=== PATIENT | female | born 1990 | race Caucasian/White ===

== ENCOUNTER 2022-05-11 17:14 | Inpatient (IN) | payer MEDICAID, SELFPAY ==
[2022-05-11] MEDS ORDERED: Acetaminophen 500 MG TAB ONE ×2 (17:37→22:19)
[2022-05-11 18:07] LABS: Hemoglobin 12.9 g/dL (12.0-16.0); Mean Corpuscular HGB CONC 34.1 g/dL (32.0-36.0); Mean Corpuscular Hemoglobin 31.1 pg (27.0-31.0); Mean Corpuscular Volume 91.3 fL (78.0-98.0); Mean Platelet Volume 8.5 fL (7.4-10.4); Platelet Count 115 thou/uL (130-400); RBC Distribution Width 12.6 % (11.5-14.5); Red Blood Cell (RBC) Count 4.15 mill/uL (4.20-5.40); White Blood Cell (WBC) Count 0.9 thou/uL (4.8-10.8)
[2022-05-11 18:17] LABS: Band 2 % (5-11); Eosinophils 1 % (0-10); Lymphocytes 80 % (21-51); MDiff Complete? YES; Monocytes 10 % (0-10); Neutrophil 4 % (42-75); Platelet Morphology Comment Appears Decreased; RBC Morphology Normal; Reactive Lymphocytes 3 % (0-10); Reflex for Review?? YES
[2022-05-11 18:21] LABS: ALT (SGPT) 25 U/L (8-55); AST (SGOT) 18 U/L (5-34); Albumin 4.3 g/dL (3.5-5.0); Alkaline Phosphatase 86 U/L (40-110); Anion Gap 13 mmol/L (10-20); BUN (Urea Nitrogen) 6 mg/dL (7.0-18.7); Bilirubin, Total 0.5 mg/dL (0.2-1.2); Calc. Creatinine Clearance 0 mL/min (70-130); Calcium 9.4 mg/dL (7.8-10.44); Carbon Dioxide 22 mmol/L (22-29); Chloride 108 mmol/L (98-107); Estimated GFR 119; Globulin 3.5 g/dL (2.4-3.5); Glucose 106 mg/dL (70-105); Potassium 3.8 mmol/L (3.5-5.1); Protein, Total 7.8 g/dL (6.0-8.3); Sodium 139 mmol/L (136-145)
[2022-05-11] MEDS ORDERED: Piperacillin/Tazobactam 3.375 GM VIAL ONE (18:34)
[2022-05-11] MEDS ORDERED: Vancomycin 1 GM/200 ML BAG ONE (18:59)
[2022-05-11 19:21] LABS: SARS-CoV-2 NAA Rapid Test Not Detected (NotDetected)
[2022-05-11 19:26] LABS: Bilirubin Negative (Negative); Blood, Urine Negative (Negative); Clarity Turbid (Clear); Glucose, Urine (Dipstick) Normal (Negative); Ketone, Urine Trace mg/dL (Negative); Leukocyte Negative Leu/uL (Negative); Nitrite Negative (Negative); Protein, Urine (Dipstick) Negative (Neg-Trace); Specific Gravity, Urine 1.013 (1.002-1.036); Urobilinogen Normal mg/dL (Less than 2); pH, Urine 5.5 (5.0-9.0)
[2022-05-11 22:17] LABS: CSF Source CSF; Clarity Hazy (Clear); Tube # 4
[2022-05-11] MEDS ORDERED: Ketorolac Tromethamine 30 MG/ML VIAL ONE (22:19)
[2022-05-11] MEDS ORDERED: diphenhydrAMINE 50 MG/ML VIAL ONE (22:22)
[2022-05-12] MEDS ORDERED: Cefepime 1 GM in Sodium Chloride 0.9% 100 ML IVPB SCH (02:00)
[2022-05-12 02:04] VITALS: BMI 32.4
[2022-05-12] MEDS: Piperacillin/Tazobactam 3.375 GM in Sodium Chloride 0.9% 100 ML IVPB SCH ×3 (02:55→17:46)
[2022-05-12] MEDS: Sodium Chloride 0.9% 1,000 ML IV SCH ×2 (02:55→21:00)
[2022-05-12] MEDS: Acetaminophen 325 MG TAB PO PRN ×3 (04:06→21:01)
[2022-05-12] MEDS: VANCOMYCIN 1.25 GM/250 ML BAG 1.25 GM in Premix Bag 1 BAG IVPB SCH ×2 (04:45→11:15)
[2022-05-12] MEDS: Ondansetron PF 4 MG/2 ML Vial IVP PRN ×3 (04:52→21:00)
[2022-05-12] MEDS ORDERED: traMADol HCl 50 MG TAB PO SCH (05:00)
[2022-05-12 08:57] LABS: Mean Corpuscular HGB CONC 33.4 g/dL (32.0-36.0); Mean Corpuscular Hemoglobin 31.1 pg (27.0-31.0); Mean Platelet Volume 8.3 fL (7.4-10.4); Platelet Count 122 thou/uL (130-400); RBC Distribution Width 12.7 % (11.5-14.5); Red Blood Cell (RBC) Count 3.53 mill/uL (4.20-5.40); White Blood Cell (WBC) Count 1.4 thou/uL (4.8-10.8)
[2022-05-12 09:00] LABS: MONO NEGATIVE CONTROL ZONE White (Negative) (White); MONO POSITIVE CONTROL Pink Line (Positive) (PINK/RED); Mononucleosis NEGATIVE (NEGATIVE)
[2022-05-12 09:12] LABS: Anion Gap 8 mmol/L (10-20); BUN (Urea Nitrogen) 4 mg/dL (7.0-18.7); Calc. Creatinine Clearance 194 mL/min (70-130); Carbon Dioxide 21 mmol/L (22-29); Chloride 112 mmol/L (98-107); Estimated GFR 125; Glucose 117 mg/dL (70-105); Potassium 3.4 mmol/L (3.5-5.1); Sodium 138 mmol/L (136-145)
[2022-05-12 09:53] LABS: Band 4 % (5-11); Lymphocytes 72 % (21-51); MDiff Complete? YES; Monocytes 20 % (0-10); Neutrophil 4 % (42-75); Platelet Morphology Comment Appears Decreased; Polychromasia SLIGHT = 2-3 cells (100X) (0-2/hpf)
[2022-05-12] MEDS ORDERED: Melatonin 3 MG TAB PO PRN (16:03)
[2022-05-13] MEDS: Piperacillin/Tazobactam 3.375 GM in Sodium Chloride 0.9% 100 ML IVPB SCH ×4 (02:09→17:39)
[2022-05-13 04:44] LABS: Anion Gap 11 mmol/L (10-20); BUN (Urea Nitrogen) 4 mg/dL (7.0-18.7); Calc. Creatinine Clearance 181 mL/min (70-130); Calcium 8.3 mg/dL (7.8-10.44); Carbon Dioxide 21 mmol/L (22-29); Chloride 109 mmol/L (98-107); Estimated GFR 123; Glucose 109 mg/dL (70-105); Potassium 3.4 mmol/L (3.5-5.1); Sodium 138 mmol/L (136-145)
[2022-05-13] MEDS: Sodium Chloride 0.9% 1,000 ML IV SCH ×4 (04:53→23:30)
[2022-05-13 05:01] LABS: Band 6 % (5-11); Hemoglobin 11.3 g/dL (12.0-16.0); Hypochromia SLIGHT = 6-15 cells (100X) (0-5/hpf); Lymphocytes 36 % (21-51); MDiff Complete? YES; Mean Corpuscular HGB CONC 34.4 g/dL (32.0-36.0); Mean Corpuscular Hemoglobin 32.1 pg (27.0-31.0); Mean Corpuscular Volume 93.3 fL (78.0-98.0); Mean Platelet Volume 7.4 fL (7.4-10.4); Monocytes 14 % (0-10); Neutrophil 40 % (42-75); Nucleated RBC 1 % (0); Platelet Count 165 thou/uL (130-400); Platelet Morphology Comment Appears Adequate; RBC Distribution Width 12.8 % (11.5-14.5); Reactive Lymphocytes 4 % (0-10); Red Blood Cell (RBC) Count 3.53 mill/uL (4.20-5.40); White Blood Cell (WBC) Count 2.4 thou/uL (4.8-10.8)
[2022-05-13 05:04] LABS: HIV (1/2) Antibody/Antigen Non-Reactive (NonReactive); HIV 1/2 INDEX 0.17 S/CO (<1.00)
[2022-05-13] MEDS: Acetaminophen 325 MG TAB PO PRN (06:06)
[2022-05-13 09:17] LABS: EBV VCA IgM <36.0 U/mL (0.0-35.9)
[2022-05-13] MEDS ORDERED: Bisacodyl 5 MG TAB PO PRN (18:26)
[2022-05-14] MEDS: Sodium Chloride 0.9% 1,000 ML IV SCH ×2 (02:50→11:46)
[2022-05-14] MEDS: Piperacillin/Tazobactam 3.375 GM in Sodium Chloride 0.9% 100 ML IVPB SCH ×3 (02:52→18:32)
[2022-05-14 04:45] LABS: Anion Gap 15 mmol/L (10-20); BUN (Urea Nitrogen) 6 mg/dL (7.0-18.7); Calc. Creatinine Clearance 179 mL/min (70-130); Calcium 8.2 mg/dL (7.8-10.44); Carbon Dioxide 18 mmol/L (22-29); Chloride 112 mmol/L (98-107); Estimated GFR 123; Glucose 84 mg/dL (70-105); Potassium 3.6 mmol/L (3.5-5.1); Sodium 141 mmol/L (136-145)
[2022-05-14 05:37] LABS: Band 2 % (5-11); Eosinophils 1 % (0-10); Hemoglobin 10.1 g/dL (12.0-16.0); Lymphocytes 48 % (21-51); MDiff Complete? YES; Mean Corpuscular Hemoglobin 31.6 pg (27.0-31.0); Mean Platelet Volume 8.2 fL (7.4-10.4); Metamyelocyte 1 % (0-0); Monocytes 24 % (0-10); Neutrophil 24 % (42-75); Platelet Count 234 thou/uL (130-400); RBC Distribution Width 12.8 % (11.5-14.5); Red Blood Cell (RBC) Count 3.19 mill/uL (4.20-5.40); White Blood Cell (WBC) Count 4.1 thou/uL (4.8-10.8)
[2022-05-15] MEDS: Piperacillin/Tazobactam 3.375 GM in Sodium Chloride 0.9% 100 ML IVPB SCH ×2 (03:38→10:25)
[2022-05-15 05:03] LABS: ALT (SGPT) 16 U/L (8-55); AST (SGOT) 17 U/L (5-34); Albumin 3.4 g/dL (3.5-5.0); Alkaline Phosphatase 66 U/L (40-110); Anion Gap 15 mmol/L (10-20); BUN (Urea Nitrogen) 7 mg/dL (7.0-18.7); Bilirubin, Total 0.3 mg/dL (0.2-1.2); Calc. Creatinine Clearance 158 mL/min (70-130); Calcium 8.5 mg/dL (7.8-10.44); Carbon Dioxide 20 mmol/L (22-29); Chloride 109 mmol/L (98-107); Estimated GFR 119; Globulin 3.2 g/dL (2.4-3.5); Glucose 99 mg/dL (70-105); Magnesium 1.9 mg/dL (1.6-2.6); Potassium 3.3 mmol/L (3.5-5.1); Protein, Total 6.6 g/dL (6.0-8.3); Sodium 141 mmol/L (136-145)
[2022-05-15 05:39] LABS: Band 2 % (5-11); Hemoglobin 10.7 g/dL (12.0-16.0); Hypochromia SLIGHT = 6-15 cells (100X) (0-5/hpf); Lymphocytes 27 % (21-51); MDiff Complete? YES; Mean Corpuscular HGB CONC 34.5 g/dL (32.0-36.0); Mean Corpuscular Hemoglobin 32.1 pg (27.0-31.0); Mean Corpuscular Volume 92.8 fL (78.0-98.0); Mean Platelet Volume 7.8 fL (7.4-10.4); Monocytes 18 % (0-10); Neutrophil 52 % (42-75); Platelet Count 361 thou/uL (130-400); Platelet Morphology Comment Appears Adequate; RBC Distribution Width 12.7 % (11.5-14.5); Reactive Lymphocytes 1 % (0-10); Red Blood Cell (RBC) Count 3.35 mill/uL (4.20-5.40); White Blood Cell (WBC) Count 5.9 thou/uL (4.8-10.8)
[2022-05-15] MEDS ORDERED: Potassium Chloride 20 MEQ TAB PO SCH (09:15)
[2022-05-15 11:01] VITALS: BP 129/87; TEMP 98.4
== END 2022-05-15 12:25 | disposition home or self-care (01) | DRG 871 ==
LOC: ERS 17:14 → ERHOLD 19:35 → 2NO 23:50
PROVIDERS: ADMIT Internal Medicine; ATTEND Internal Medicine
PROC: 3E03329 Introduction of Other Anti-infective into Peripheral Vein, Percutaneous Approach (ICD-10-PCS; principal; 2022-05-11)
PROC: 009U3ZX Drainage of Spinal Canal, Percutaneous Approach, Diagnostic (ICD-10-PCS; 2022-05-11)
PROC: 8E0ZXY6 Isolation (ICD-10-PCS; 2022-05-11)
DX: A41.89 Other specified sepsis (principal); U07.1 COVID-19; F17.210 Nicotine dependence, cigarettes, uncomplicated; B27.00 Gammaherpesviral mononucleosis without complication; D69.59 Other secondary thrombocytopenia; Z88.1 Allergy status to other antibiotic agents; Z82.49 Family history of ischemic heart disease and other diseases of the circulatory system; Z83.3 Family history of diabetes mellitus; Z28.310 Unvaccinated for COVID-19
CPT/HCPCS: 36415; 62270; 71045; 71250; 80048; 80053; 81003; 82945; 83605; 83735; 84157; 85025; 85060; 86308; 86664; 86665; 87040; 87070; 87081; 87086; 87205; 87389; 87430; 89051; 93005; 96361; 96365; 96366; 96367; 96375; J1200; J1885; J2405; J2543; J3370; J3490; J7050; U0003; U0005

== ENCOUNTER 2024-11-15 14:11 | Outpatient (CLI) | payer OTHER | END 2024-11-15 14:12 | disposition home or self-care (01) | LOC: BICULT 14:11 | PROVIDERS: ATTEND Family Medicine | DX: Z34.82 Encounter for supervision of other normal pregnancy, second trimester (principal); Z3A.21 21 weeks gestation of pregnancy | CPT/HCPCS: 76805 ==